=== PATIENT | female | born 1960 | race Caucasian/White ===

== ENCOUNTER 2018-04-24 21:41 | Emergency (ER) | payer OTHER ==
[2018-04-25] MEDS: LORAZEPAM 0.5 MG TAB PO (00:13)
== END 2018-04-25 01:17 | disposition home or self-care (01) ==
LOC: E/R 04-25 01:17
DX: I10 Essential (primary) hypertension (principal); F41.9 Anxiety disorder, unspecified; F43.0 Acute stress reaction
CPT/HCPCS: 99283; Z7502